=== PATIENT | female | born 1935 | race Caucasian/White ===

== ENCOUNTER 2020-05-20 06:08 | Day surgery (SDC) | payer MEDICARE, BC ==
[2020-05-13 16:20] LABS: BASOPHILS % (AUTO) 0.5 % (0-1); EOSINOPHILS # (AUTO) 0.1 X10'3 (0-0.9); EOSINOPHILS % (AUTO) 1.5 % (0-6); LYMPHOCYTES # (AUTO) 2.1 X10'3 (1.1-4.8); LYMPHOCYTES % (AUTO) 25.6 % (21-51); MEAN CORPUSCULAR HEMOGLOBIN 29.2 PG (27.0-31.0); MEAN CORPUSCULAR HGB CONC 33.4 g/dL (33.0-36.5); MEAN CORPUSCULAR VOLUME 87.3 FL (78-98); MONOCYTES # (AUTO) 0.5 X10'3 (0-0.9); MONOCYTES % (AUTO) 6.5 % (2-12); NEUTROPHILS # (AUTO) 5.4 X10'3 (1.8-7.7); NEUTROPHILS % (AUTO) 65.9 % (42-75); PRE OP HEMATOCRIT 36.8 % (35.0-45.0); PRE OP HEMOGLOBIN 12.3 g/dL (12.0-16.0); PRE OP PLATELET COUNT 243 X10'3 (140-440); RED BLOOD COUNT 4.22 X10'6 (4.20-5.60); RED CELL DISTRIBUTION WIDTH 14.4 % (11.5-14.5)
[2020-05-13 16:39] LABS: ALBUMIN 3.5 G/DL (3.4-5.0); ALKALINE PHOSPHATASE 63 IU/L (46-116); BLOOD UREA NITROGEN 29 MG/DL (7-18); BUN/CREATININE RATIO 33.7 (6.6-38.0); CALCIUM 9.1 MG/DL (8.5-10.1); CHLORIDE 107 MMOL/L (99-107); CREATININE 0.86 MG/DL (0.40-0.90); PRE OP ALT 24 U/L (30-65); PRE OP ANION GAP 7 (8-16); PRE OP AST 13 U/L (10-37); PRE OP BILIRUB, TOTAL 0.6 MG/DL (0.0-1.0); PRE OP GLUCOSE 127 MG/DL (70-104); PRE OP POTASSIUM 4.3 MMOL/L (3.4-5.1); PRE OP SODIUM 143 MMOL/L (135-145); TOTAL CARBON DIOXIDE 29.4 MMOL/L (24-32); TOTAL PROTEIN 6.9 G/DL (6.4-8.2); eGFR 63 ML/MIN
[~2020-05-20] VITALS: Ht 167.6 cm; Wt 104.3 kg
[~2020-05-20 06:08] MED LIST: PREVCR VG; ceFAZolin 2gm in dextrose, iso 50 ML IV ONE; famotidine 20mg tablet PO ONE; ringers solution, lacted 1,000 ML IV SCH
[2020-05-20 06:30] VITALS: BP 166/68
[2020-05-20] MEDS ORDERED: LIDOcaine 0.5% (5mg/ml) 50ml vial ONE (07:24)
[2020-05-20] MEDS ORDERED: fentaNYL/PF 50MCG/1 ML 2ML syringe IV PRN ×2 (07:25)
[2020-05-20] MEDS ORDERED: morphine 4 MG/ML inj SYRINge IV PRN (07:25)
[2020-05-20] MEDS ORDERED: morphine 2 MG/ML inj. syringe IV PRN (07:25)
[2020-05-20] MEDS ORDERED: labetalol 20mg/4ml (5mg/ml) syringe IV PRN (07:25)
[2020-05-20] MEDS ORDERED: hydrALAZINE 20mg/ml inj. IV PRN (07:25)
[2020-05-20] MEDS ORDERED: ondansetron/PF 4mg/2ml inj IV PRN (07:25)
[2020-05-20] MEDS ORDERED: ringers solution, lacted 1,000 ML IV SCH ×2 (07:25→07:30)
[2020-05-20] MEDS ORDERED: famotidine 20mg tablet PO ONE (07:30)
[2020-05-20] MEDS ORDERED: ceFAZolin 2gm in dextrose, iso 50 ML IV ONE (07:30)
[2020-05-20] MEDS ORDERED: BUPIVAcaine/PF 2.5mg/ml (0.25%) 10ml vial ONE (09:16)
[2020-05-20] MEDS ORDERED: MIDAZolam 5mg/5ml vial ONE (09:29)
[2020-05-20] MEDS ORDERED: fentaNYL/PF 50MCG/1 ML 2ML syringe ONE (09:29)
[2020-05-20 09:54] VITALS: BP 140/82
--- NOTE | 2020-05-20 09:54 | NUR ---
Received from OR via , accompanied by Anesthesiologist DR HERNANDEZ and report given by Anesthesiolgist. AWAKENS TO VOICE. VITALS STABLE DRESSING DI. TAMMIE PAIN. FINGERS WARM AND PINK.
[2020-05-20 10:04] VITALS: BP 128/65
[2020-05-20 10:14] VITALS: BP 139/66
[2020-05-20 10:24] VITALS: BP 145/67
[2020-05-20 10:34] VITALS: BP 142/66
--- NOTE | 2020-05-20 11:03 | NUR ---
AWAKE AND ORIENTED. VITALS STABLE. DRESSING DI TAMMIE PAIN. HOME WITH A FRIEND AT THIS TIME.
== END 2020-05-20 10:54 | disposition home or self-care (01) ==
LOC: PAS 06:08
PROVIDERS: ATTEND Orthopaedic Surgery Hand Surgery
DX: G56.02 Carpal tunnel syndrome, left upper limb (principal); M17.11 Unilateral primary osteoarthritis, right knee; Z20.828 Contact with and (suspected) exposure to other viral communicable diseases; Z79.899 Other long term (current) drug therapy; Z90.49 Acquired absence of other specified parts of digestive tract; Z90.710 Acquired absence of both cervix and uterus; Z96.653 Presence of artificial knee joint, bilateral; Z98.890 Other specified postprocedural states; Z87.891 Personal history of nicotine dependence; Z88.1 Allergy status to other antibiotic agents
CPT/HCPCS: 36415; 64721; 80053; 85025; 87635; 93005; J2001; J2250; J3010; J3490; A4215; J7120

== ENCOUNTER 2023-02-10 10:31 | Outpatient (CLI) | payer MEDICARE, BC ==
[~2023-02-10 10:31] MED LIST changes: -ceFAZolin 2gm in dextrose, iso 50 ML IV ONE; -famotidine 20mg tablet PO ONE; -ringers solution, lacted 1,000 ML IV SCH
== END 2023-02-10 23:59 | disposition home or self-care (01) ==
LOC: CARD DIAG 10:31
PROVIDERS: ATTEND Internal Medicine Cardiovascular Disease
DX: I08.8 Other rheumatic multiple valve diseases (principal); R06.02 Shortness of breath
CPT/HCPCS: 93306